=== PATIENT | male | born 1985 | race Caucasian/White ===

== ENCOUNTER 2020-10-15 14:59 | Emergency (ER) | payer BC ==
[2020-10-15] MEDS ORDERED: Alum Hydrox/Mag Hydrox/Simeth 15 ML, Lidocaine 2% 15 ML PO ONE ×2 (15:32)
[2020-10-15] MEDS ORDERED: Ondansetron 4 MG Tab.DIS PO ONE (15:34)
[2020-10-15] MEDS ORDERED: Acetaminophen 500 MG Tab PO ONE (15:38)
--- NOTE | 2020-10-15 15:38 | EDM.PDOC ---
<Ac Desai - Last Filed: 10/15/20 17:51> ED HPI GENERAL MEDICAL PROBLEM - General Chief Complaint: Abdominal Pain Stated Complaint: BLOODY STOOL, SOB, SIDE PAIN, STOMACH CRAMPS Time Seen by Provider: 10/15/20 15:20 Source of Information: Reports: Patient. Denies: Old Records History Limitations: Reports: Other (no old records) - History of Present Illness INITIAL COMMENTS - FREE TEXT/NARRATIVE: 35 yo male here with abdominal pain, diarrhea, and GI bleeding. He has had this in the past and had an extensive work up in his home state [facility] during which time he had upper and lower endoscopy. No hemorrhoids were found, but they did find polyps that were removed. Nothing was seen on his upper endoscopy. He goes back and forth between diarrhea and constipation and has some blood in stools with both situations, but more with the diarrhea. 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 His bleeding today per rectum is worse than normal and maroon in color. He vomited a couple days ago last and there was a small amt of blood in the emesis. His abdominal pain is epigastric in location. Onset: Unknown/Unsure Duration: Chronic, Waxing/Waning Location: Reports: Abdomen Quality: Reports: Ache Severity: Moderate Improves with: Reports: Other (unknown) Worsens with: Reports: Other (unknown) Context: Reports: Other (See HPI) Associated Symptoms: Reports: Nausea/Vomiting. Denies: Fever/Chills Treatments COP WINDER: Reports: Other (see below) (none) Right Upper Abdomen Pain Score (Numeric/FACES): 3 - Related Data Allergies Allergy/AdvReac Type Severity Reaction Status Date / Time No Known Allergies Allergy Verified 10/15/20 15:22 Home Meds: Home Meds Famotidine 40 mg PO DAILY #30 tablet 10/15/20 [Rx] Past Medical History Gastrointestinal History: Reports: Colon Polyp, GI Bleed Social & Family History - Tobacco Use Tobacco Use Status *Q: Never Tobacco User - Caffeine Use Caffeine Use: Reports: None - Recreational Drug Use Recreational Drug Use: No ED ROS GENERAL - Review of Systems Review Of Systems: See Below Constitutional: Reports: No Symptoms HEENT: Reports: No Symptoms Respiratory: Reports: No Symptoms Cardiovascular: Reports: No Symptoms Endocrine: Reports: No Symptoms GI/Abdominal: Reports: Abdominal Pain, Bloody Stool, Diarrhea, Hematemesis, Nausea, Vomiting. Denies: Melena : Reports: No Symptoms Musculoskeletal: Reports: No Symptoms Skin: Reports: No Symptoms Neurological: Reports: No Symptoms ED EXAM, GI/ABD - Physical Exam Exam: See Below Exam Limited By: No Limitations General Appearance: Alert, WD/WN, No Apparent Distress Eyes: Bilateral: Normal Appearance Ears: Normal External Exam, Normal Canal, Hearing Grossly Normal Nose: Normal Inspection, No Blood Throat/Mouth: Normal Inspection, Normal Lips, Normal Oropharynx, Normal Voice, No Airway Compromise Head: Atraumatic, Normocephalic Neck: Normal Inspection Respiratory/Chest: No Respiratory Distress, Lungs Clear, Normal Breath Sounds, N o Accessory Muscle Use Cardiovascular: Regular Rate, Rhythm GI/Abdominal Exam: Normal Bowel Sounds, Soft, No Distention, Tender (epigastrium). No: Non-Tender, Distended, Guarding, Rigid, Rebound Extremities: Normal Inspection, Normal Range of Motion, Non-Tender, No Pedal Edema. No: Pedal Edema Neurological: Alert, Oriented, CN II-XII Intact, Normal Cognition, No Motor/Sensory Deficits Psychiatric: Normal Affect, Normal Mood Skin Exam: Warm, Dry, Intact, Normal Color, No Rash Course - Re-Assessments/Exams Free Text/Narrative Re-Assessment/Exam: 10/15/20 15:56 No change in abdominal pain with GI cocktail po Free Text/Narrative Re-Assessment/Exam: 10/15/20 17:51 His cramping is better now and he is left with what he feels is RUQ pain, he still has his GB, will get an US. Departure - Departure Disposition: Home, Self-Care 01 Condition: Fair Clinical Impression: Gastritis Qualifiers: Gastritis type: unspecified gastritis Chronicity: unspecified Gastritis bleedin g: with bleeding Qualified Code(s): K29.71 - Gastritis, unspecified, with bleeding GERD with esophagitis Qualifiers: Esophagitis bleeding: unspecified whether hemorrhage Qualified Code(s): K21.00 - Gastro-esophageal reflux disease with esophagitis, without bleeding IBS (irritable bowel syndrome) Qualifiers: Irritable bowel syndrome type: with diarrhea Qualified Code(s): K58.0 - Irritable bowel syndrome with diarrhea - Discharge Information *PRESCRIPTION DRUG MONITORING PROGRAM REVIEWED*: Not Applicable *COPY OF PRESCRIPTION DRUG MONITORING REPORT IN PATIENT EDDIE: Not Applicable Prescriptions: Famotidine 40 mg PO DAILY #30 tablet Referrals: PCP,None [Primary Care Provider] - Forms: ED Department Discharge, ED Return to Work/School Form Additional Instructions: Take famotidine every day for your stomach. Take acetaminophen 1000 mg every 6 hrs for pain relief. Take Zofran every 6 hrs for nausea control. Avoid alcohol, carbonated beverages, caffeine, ibuprofen, aspirin, or Aleve. Please report to the outpatient surgery center tomorrow your colonoscopy is scheduled for 9:30 in the morning, start the colonoscopy prep tonight recommend staying in a hotel and you must have a [employer] driver tomorrow Sepsis Event Note (ED) - Evaluation Sepsis Screening Result: No Definite Risk <OfficerGary - Last Filed: 10/15/20 19:41> Course - Vital Signs Last Recorded V/S: Last Vital Signs Temp 98.2 F 10/15/20 15:20 Pulse 76 10/15/20 15:20 Resp 18 10/15/20 15:20 BP 146/96 H 10/15/20 15:20 Pulse Ox 97 10/15/20 15:20 Orthostatic Blood Pressure [ 157/102 Standing] Orthostatic Blood Pressure [ 153/93 Sitting] Orthostatic Blood Pressure [ 138/85 Supine] - Orders/Labs/Meds Orders: Active Orders 24 hr Category Date Time Status Orthostatic Vital Signs [RC] ASDIRECTED Care 10/15/20 15:32 Active Abdomen Ltd [US] Stat Exams 10/15/20 17:50 Ordered Pantoprazole [ProTONIX IV] Med 10/15/20 16:15 Active 80 mg IVPUSH .BOLUS Sodium Chloride 0.9% [Saline Flush] Med 10/15/20 15:44 Active 10 ml FLUSH ASDIRECTED PRN Saline Lock Insert [OM.PC] Routine Oth 10/15/20 15:44 Ordered Medication Orders Pantoprazole Sodium (Pantoprazole 40 Mg Vial) 80 mg IVPUSH .BOLUS ANASTASIIA Last Admin: 10/15/20 16:25 Dose: 80 mg Documented by: TRIPP Sodium Chloride (Sodium Chloride 0.9% 10 Ml Syringe) 10 ml FLUSH ASDIRECTED PRN PRN Reason: Keep Vein Open Last Admin: 10/15/20 16:18 Dose: 10 ml Documented by: TRIPP Labs: Laboratory Tests 10/15/20 10/15/20 Range/Units 15:43 15:43 WBC 6.5 (4.5-11.0) K/uL RBC 4.71 (4.30-5.90) M/uL Hgb 15.2 H (12.0-15.0) g/dL Hct 42.2 (40.0-54.0) % MCV 90 (80-98) fL MCH 32 H (27-31) pg MCHC 36 (32-36) % Plt Count 210 (150-400) K/uL Sodium 141 (140-148) mmol/L Potassium 4.2 (3.6-5.2) mmol/L Chloride 103 (100-108) mmol/L Carbon Dioxide 28 (21-32) mmol/L Anion Gap 9.8 (5.0-14.0) mmol/L BUN 12 (7-18) mg/dL Creatinine 1.1 (0.8-1.3) mg/dL Est Cr Clr Drug Dosing 111.05 mL/min Estimated GFR (MDRD) > 60 (>60) Glucose 93 (74-106) mg/dL Calcium 9.1 (8.5-10.1) mg/dL Lipase 68 L (73-393) U/L Meds: Medications Generic Name Dose Route Start Last Admin Trade Name Freq PRN Reason Stop Dose Admin Pantoprazole Sodium 80 mg 10/15/20 16:15 10/15/20 16:25 Pantoprazole 40 Mg Vial IVPUSH 80 mg .BOLUS ANASTASIIA Administration Sodium Chloride 10 ml 10/15/20 15:44 10/15/20 16:18 Sodium Chloride 0.9% 10 Ml Syringe FLUSH 10 ml ASDIRECTED PRN Administration Keep Vein Open Discontinued Medications Generic Name Dose Route Start Last Admin Trade Name Freq PRN Reason Stop Dose Admin Acetaminophen 1,000 mg 10/15/20 15:38 10/15/20 15:43 Acetaminophen 500 Mg Tab PO 10/15/20 15:39 1,000 mg ONETIME ONE Administration Belladonna/Phenobarbital 10 ml 10/15/20 16:57 10/15/20 17:06 Atropine/Hyoscyamine/Phenobarbital/Scopolamine Elixir 10 Ml Ud PO 10/15/20 16:58 10 ml ONETIME ONE Administration Al Hydroxide/Mg Hydroxide 15 0 ml 10/15/20 15:32 10/15/20 15:39 ml/ Lidocaine HCl 15 ml PO 10/15/20 15:33 30 ml ONETIME ONE Administration Lactated Ringer's 1,000 mls @ 1,000 mls/hr 10/15/20 16:10 10/15/20 16:19 Ringers, Lactated IV 10/15/20 17:09 1,000 mls/hr BOLUS ONE Administration Ondansetron HCl 4 mg 10/15/20 15:34 10/15/20 15:39 Ondansetron 4 Mg Tab.Dis PO 10/15/20 15:35 4 mg ONETIME ONE Administration Ondansetron HCl 4 mg 10/15/20 17:19 10/15/20 17:24 Ondansetron 4 Mg/2 Ml Sdv IVPUSH 10/15/20 17:20 4 mg ONETIME ONE Administration Departure - Departure Time of Disposition: 19:39 Sepsis Event Note (ED) - Focused Exam Vital Signs: Vital Signs Temp Pulse Resp BP Pulse Ox 10/15/20 15:20 98.2 F 76 18 146/96 H 97 - Assessment/Plan Plan: Assessment Acuity = acute Site and laterality = cramping abdominal pain Etiology = suspicious for inflammatory bowel disease Manifestations = diarrhea intermittent Location of injury = Home Lab values = CBC BMP ultrasound of the gallbladder reveals no Plan Call discussed case with Dr. Bahena general surgeon on-call he agreed to do colonoscopy with biopsies in the I discussed this with the patient he is going to start the colonoscopy he will get a hotel room to stay in he will have a [employer] driver for tomorrow. Also set up a consultation to establish with primary care after the biopsy so that he get the appropriate diagnosis and treatment hopefully this will happen next week This note was dictated using [employer] voice recognition software please call with any questions on syntax or grammar.
[2020-10-15] MEDS ORDERED: Sodium Chloride 0.9% 10 ML Syringe FLUSH PRN (15:44)
[2020-10-15] MEDS ORDERED: Lactated Ringers 1,000 ML IV ONE (16:10)
[2020-10-15] MEDS ORDERED: Pantoprazole 40 MG Vial IVPUSH SCH (16:15)
[2020-10-15] MEDS ORDERED: Atropine/Hyoscyamine/PHENobarbital/Scopolamine Elixir 10 ML UD PO ONE (16:57)
[2020-10-15] MEDS ORDERED: Ondansetron 4 MG/2 ML SDV IVPUSH ONE (17:19)
--- NOTE | 2020-10-17 09:00 | US ---
Abdomen Ltd CLINICAL HISTORY: Right upper quadrant pain COMPARISON: None. TECHNIQUE: Real-time images were obtained through the right upper quadrant. FINDINGS: The liver is free of mass or biliary dilatation. It is upper limits of normal size at over 17 cm in length. Echotexture is homogeneous throughout. The gallbladder has a normal appearance. The common bile duct measures 3 mm. The pancreas is free of mass. The right kidney has a normal appearance. The IVC is normal. IMPRESSION: Borderline hepatomegaly
== END 2020-10-15 20:11 | disposition home or self-care (01) ==
LOC: JP.ED 14:59
DX: K29.71 Gastritis, unspecified, with bleeding (principal); K21.00 Gastro-esophageal reflux disease with esophagitis, without bleeding; K58.0 Irritable bowel syndrome with diarrhea
CPT/HCPCS: 36415; 76705; 80048; 83690; 85027; 96374; 96375; 99285; A9270; C9113; J2405; J7120

== ENCOUNTER 2020-10-16 08:41 | Day surgery (SDC) | payer BC ==
[2020-10-16] MEDS ORDERED: Dextrose 5%-Lactated Ringers 1,000 ML IV SCH (09:00)
[2020-10-16 09:34] LABS: CORONAVIRUS COVID-19 NAA NEGATIVE (NEGATIVE)
[2020-10-16] MEDS ORDERED: fentaNYL 100 MCG/2 ML SDV ONE (09:55)
[2020-10-16] MEDS ORDERED: Midazolam 1 MG/ML 2 ML SDV ONE (09:55)
[2020-10-16] MEDS ORDERED: Propofol 200 MG/20 ML SDV ONE ×3 (09:55→12:27)
[2020-10-16] MEDS ORDERED: Pantoprazole 40 MG Vial IVPUSH ONE (13:24)
--- NOTE | 2020-10-22 16:29 | PN ---
DATE OF SERVICE: 10/16/2020 The patient was referred from the emergency room yesterday for what was reported to be suggestive of lower GI bleed. Examination today was entirely normal and there appeared to be some disconnect between the patient's clinical presentation and what we were looking for endoscopically. On further questioning of the patient after he recovered from anesthesia, led to the conclusion that we may very well have been dealing with an upper GI bleed. The patient did report some hematemesis which he did not report on today's questioning earlier. The patient at this point appeared to be well recovered from the propofol which he received in isolation which will result in a rapid clearance of his mental status, and given this, the plan is at this point to proceed with upper GI endoscopy. Potential risks including bleeding and perforation were discussed and the patient wishes to proceed. An upper endoscopy will be performed shortly. Vladimir Bahena MD /[id number]
--- NOTE | 2020-10-22 16:29 | OR ---
DATE OF PROCEDURE: 10/16/2020 SURGEON: Vladimir Bahena MD PREOPERATIVE DIAGNOSIS: Recent rectal bleeding with mid and lower abdominal cramping. POSTOPERATIVE DIAGNOSIS: Normal colonoscopic examination. OPERATIVE PROCEDURE: Flexible colonoscopy with collection of stool for cultures. INDICATION FOR PROCEDURE: This is a 35-year-old seen yesterday in the emergency room with history of some rectal bleeding, this was felt to be lower GI bleeding. The patient has history of polyps in the past as well as some lower GI bleeding. The plan is to proceed with flexible colonoscopy with biopsies and/or polypectomy as indicated. Potential risks including bleeding and perforation were discussed and the patient wishes to proceed. DETAILS OF PROCEDURE: The patient was taken to the operating room and placed in a left lateral decubitus position. IV sedation was administered after which the initial digital rectal examination was performed and was unremarkable. Colonoscope was then passed into the rectum with retroflexion revealing complicated hemorrhoidal columns. Scope was eventually passed to the level of the cecum. The prep was very good. Minimal liquid stool was present, some of this was irrigated and collected for stool culture. Otherwise, there were no mucosal abnormalities, specifically no diverticula. No areas of colitis. No polyps or other signs of neoplasia. No blood or bleeding was seen. Scope was withdrawn and the above findings reconfirmed and the procedure then concluded. The patient was taken to the recovery room in satisfactory condition. Vladimir Bahena MD /[id number]
--- NOTE | 2020-10-23 11:27 | OR ---
DATE OF PROCEDURE: 10/16/2020 SURGEON: Vladimir Bahena MD PREOPERATIVE DIAGNOSIS: Probable recent upper gastrointestinal bleeding. POSTOPERATIVE DIAGNOSIS: Recent upper gastrointestinal bleeding secondary to ulcerated esophagitis and mild antral gastritis. OPERATIVE PROCEDURE: Esophagogastroduodenoscopy with: 1. Biopsies of reddened area over esophagogastric junction. 2. Biopsies of antrum for CLOtest. ANESTHESIA: IV sedation. INDICATION FOR PROCEDURE: Please see the previous progress note dictated today. Potential risks including bleeding and perforation were once again discussed and the patient wishes to proceed. DETAILS OF PROCEDURE: The patient was taken to the operating room and placed in a left lateral decubitus position. IV sedation was administered, after which the upper GI endoscope was passed orally through the length of the esophagus and stomach with retroflexion view of the fundus, thereafter through the pyloric channel into the junction of the third and fourth portions of the duodenum. Findings included small hiatal hernia associated with marked ulcerated esophagitis. Two reddened and raised areas were noted and these appeared to be likely source of recent bleeding. No blood or bleeding was seen on today's exam. The remainder of the gastric examination showed some mild patchy redness in the antrum. Otherwise, the gastric and duodenal exams were unremarkable. At this point, biopsies were obtained from the antrum and sent for CLOtest for H. pylori. Biopsies were then obtained from reddened areas of the esophagogastric junction with careful not to overly biopsy these areas so as not to create some further bleeding. Minimal bleeding from biopsy site was seen and the procedure then concluded. The patient presently is on Pepcid. We will continue that for now and we will also give him some IV Protonix in the recovery room, started on Protonix 40 mg daily and we will see him back on 10/24/2020 for followup. probably for another 2 months or so and the consideration for followup endoscopy to confirm healing would be warranted as well as more extensive biopsies. Vladimir Bahena MD /[id number]
== END 2020-10-16 14:00 | disposition home or self-care (01) ==
LOC: JP.SDS 08:41
PROVIDERS: ATTEND Surgery
DX: K22.10 Ulcer of esophagus without bleeding (principal); K29.70 Gastritis, unspecified, without bleeding; K44.9 Diaphragmatic hernia without obstruction or gangrene; K64.9 Unspecified hemorrhoids; Z01.812 Encounter for preprocedural laboratory examination; Z20.822 Contact with and (suspected) exposure to COVID-19; Z86.010 Personal history of colon polyps
CPT/HCPCS: 0241U; 43239; 45378; 87046; 87081; 87177; 87209; 87493; 87899; 88305; 88312; C9113; J2250; J2704; J3010; J7121